=== PATIENT | male | born 1960 | race Caucasian/White ===

== ENCOUNTER → 2020-07-27 11:35 | Outpatient (CLI) | payer OTHER, SELFPAY ==
--- NOTE | 2020-07-27 | DI.MRI.S_ITS ---
PROCEDURE: MR LUMBAR SPINE WO CON INDICATIONS: Low back pain TECHNIQUE: Noncontrast sagittal T1 spin echo and T2 fast echo, sagittal STIR, axial T1 and T2 fast spin echo through the lumbar spine. In cases with scoliosis, additional coronal T2 fast spin echo may be performed. COMPARISON: None. FINDINGS: Image quality: Excellent. Alignment and Curvature: There is normal bony alignment. Bone Marrow: Marrow is of normal overall signal. No acute vertebral body compression fractures. Spinal Cord: Conus medullaris terminates at the L1 level. Visualized cord demonstrates normal signal and size. Paraspinous Soft Tissues: No paravertebral masses. T12-L1: Normal appearance. L1-L2: Loss of disc signal. Mild, diffuse disc bulge. Mild narrowing of the central canal. Mild bilateral neural foraminal narrowing. No neural compression. L2-L3: Normal appearance. L3-L4: Slight loss of disc signal. Mild, diffuse disc bulge. Mild bilateral facet hypertrophy. Mild narrowing of the central canal. Mild bilateral neural foraminal narrowing. No neural compression. L4-L5: Loss of disc signal. Mild, diffuse disc bulge. Mild bilateral facet hypertrophy. No central stenosis. Mild bilateral neural foraminal narrowing. No neural compression. L5-S1: Loss of disc signal. Mild, diffuse disc bulge. Mild bilateral facet hypertrophy. No central stenosis. No neural foraminal narrowing. No neural compression IMPRESSION: 1. Multilevel degenerative disc disease. 2. Multilevel facet arthropathy. 3. No severe central canal narrowing. 4. No severe neural foraminal narrowing. 5. No neural compression. Dictated by: Darcy Mo MD, PhD on 07/27/2020 at 16:29 Approved by: Darcy Mo MD, PhD on 07/27/2020 at 16:32
== END ==
PROVIDERS: Referring Provider Student in an Organized Health Care Education/Training Program; Visit Provider Student in an Organized Health Care Education/Training Program
DX: M54.5 Low back pain (principal); M51.36 Other intervertebral disc degeneration, lumbar region; M51.37 Other intervertebral disc degeneration, lumbosacral region; M47.816 Spondylosis without myelopathy or radiculopathy, lumbar region; M47.817 Spondylosis without myelopathy or radiculopathy, lumbosacral region
CPT/HCPCS: 72148

== ENCOUNTER → 2022-08-14 13:15 | Outpatient (CLI) | payer OTHER, SELFPAY ==
--- NOTE | 2022-08-14 | DI.NM.S_ITS ---
PROCEDURE: NM EXERCISE TREADMILL NON NUC COMPARISON: None. INDICATIONS: Essential (primary) hypertension/abnormal ekg FINDINGS: Rest ECG sinus rhythm. Brandon protocol 5:43, maximum heart rate 134 bpm (85% peak predicted), maximum blood pressure 168/90, 7.0 METS, NONA +28%. Stress ECG sinus tachycardia, no ST segment changes or arrhythmia. Occasional PVCs noted. The patient did not complain of exercise-induced chest pain. IMPRESSION: Low risk study. No evidence of exercise-induced ischemia. PVCs occurred with exercise, occasionally in a bigeminal pattern. No hemodynamic response. Reduced exercise capacity. Dictated by: Minda Arce D.O. on 08/14/2022 at 16:21 Approved by: Minda Arce D.O. on 08/14/2022 at 16:25
--- NOTE | 2022-08-14 | DI.ECHO.S_ITS ---
[facility] +---------+ : : [address] [place] : : : : [id number] : : : : Phone: [phone]+ Echocardiogram Report + + :Name: TUAN BILLY Study Date: 08/14/2022 Height: 72 in : :[facility] ReadingLocation: Weight: 210 lb : : Gender: Male BSA: 2.2 m2 : :: 1960 Age: 61 yrs BP: 126/88 mmHg: :Reason For Study: HYPERTENSION : :Ordering Physician: EMILIE, : :PO Performed By: Linda Yanes : :Referring: PO SOUSA : + + Interpretation Summary 1) Mildly increased left ventricular thickness with normal size and low normal systolic function (EF 50-55%). 2) Mildly enlarged right ventricle with normal function. 3) No significant valvular abnormalities. 4) No prior Echo available for comparison. Procedure: A two-dimensional transthoracic echocardiogram with color flow and Doppler was performed. The study quality was technically adequate. There is no prior echocardiogram noted for this patient. The patient was in sinus bradycardia with heart rates between 52-58 bpm during the exam. Left Ventricle: The left ventricle is normal in size. There is mild concentric left ventricular hypertrophy. The ejection fraction is estimated to be 50-55%. There are no focal wall motion abnormalities. Right Ventricle: The right ventricle is mildly dilated. The right ventricular systolic function is normal. Atria: The left atrial size is normal. The right atrium is normal in size. There is no Doppler evidence for an interatrial shunt. Mitral Valve: The mitral valve is normal in structure and function. There is no mitral regurgitation noted. Aortic Valve: The aortic valve is trileaflet. The aortic valve opens well. There is no aortic valve stenosis. There is mild aortic regurgitation. Tricuspid Valve: The tricuspid valve is normal in structure and function. There is a trace or physiologic amount of tricuspid regurgitation. The right ventricular systolic pressure is estimated to be at least 27 mmHg based on an estimated right atrial pressure of 8 mm Hg. Pulmonic Valve: The pulmonic valve leaflets are thin and pliable; valve motion is normal. There is mild pulmonic regurgitation. Great Vessels: The aortic root is normal size. The dimensions of the ascending aorta are normal. The IVC is dilated (diameter is greater than 2.1 cm) yet it collapses greater than 50% with a sniff. This suggests a right atrial pressure of 8 mm Hg. Pericardium/ Pleura There is no pericardial effusion. There is no pleural effusion. MMode/2D Measurements & Calculations LVIDd: 5.6 cm LVOT diam: 2.4 cm LVIDs: 3.8 cm Ao root diam: 3.5 cm FS: 32.5 % asc Aorta Diam: 3.3 cm EPSS: 1.1 cm Ao Arch Diam (Prox Trans): 2.7 cm IVSd: 1.2 cm LVPWd: 0.93 cm LV perry. diameter/BSA (cm/m^2): 2.6 LV sys. diameter/BSA (cm/m^2): 1.7 LA A2 area: 20.8 cm2 RA long axis: 4.7 cm LA A4 area: 19.7 cm2 RA area: 17.8 cm2 LA length (vol): 5.3 cm RA vol: 56.7 ml LA vol: 65.3 ml RA : 26.1 ml/m2 LA vol index: 30.0 ml/m2 IVC diam: 2.1 cm RVD1 (basal): 4.3 cm RVD2 (mid): 4.0 cm TAPSE: 2.0 cm Doppler Measurements & Calculations Ao V2 max: 129.7 cm/sec LVOT Max Grant: 78.1 cm/sec Ao V2 mean: 87.0 cm/sec LV V1 max P.4 mmHg Ao max P.7 mmHg LV V1 VTI: 17.1 cm Ao mean P.5 mmHg XUAN(I,D): 3.1 cm2 Ao V2 VTI: 24.2 cm XUAN(V,D): 2.7 cm2 sev ratio: 0.71 XUAN indexed to BSA (cm^2/m^2): 1.4 MV E max grant: 57.0 cm/sec TR max grant: 218.7 cm/sec MV A max grant: 64.2 cm/sec TR max P.1 mmHg MV E/A: 0.89 PA V2 max: 113.7 cm/sec Med Peak E' Grant: 6.1 cm/sec PA V2 mean: 79.0 cm/sec E/E' med: 9.3 PA mean P.8 mmHg Lat Peak E' Grant: 8.9 cm/sec PA pr(Accel): 24.2 mmHg E/E' lat: 6.4 E/e' average: 7.9 MV dec time: 0.23 sec SV(LVOT): 75.2 ml Reading Physician:04:[id number] PM
== END ==
PROVIDERS: PCP Nurse Practitioner Family; Referring Provider Internal Medicine Cardiovascular Disease; Visit Provider Internal Medicine Cardiovascular Disease
DX: I35.1 Nonrheumatic aortic (valve) insufficiency (principal); I37.1 Nonrheumatic pulmonary valve insufficiency; R94.31 Abnormal electrocardiogram [ECG] [EKG]; I10 Essential (primary) hypertension
CPT/HCPCS: 93017; 93306